=== PATIENT | male | born 1965 | race Caucasian/White ===

== ENCOUNTER 2018-04-08 19:03 | Emergency (ER) | payer MEDICAID ==
[2018-04-08 19:18] VITALS: BP 144/98; PULSE 70; TEMP 98.7; O2SAT 97
[2018-04-08] MEDS ORDERED: Naproxen 550 mg Tab PO STA (20:04)
[2018-04-08] MEDS ORDERED: Naproxen 550 mg Tab PO ONE (20:10)
--- NOTE | 2018-04-08 20:11 | C.PDOC ---
History Of Present Illness 52 year old male presents to the ED for evaluation of pain from his right index and middle finger that has been radiating up his right arm since yesterday. As per son, patient experienced some right shoulder pain last week. 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 Of note, patient sustained a crush injury to his right middle finger around 30+ years ago. Patient denies trauma to the area, neck pain, changes in sensation or weakness. Time Seen by Provider: 04/08/18 19:51 Chief Complaint (Nursing): Finger,Hand,&Wrist History Per: Patient History/Exam Limitations: no limitations Onset/Duration Of Symptoms: Hrs Current Symptoms Are (Timing): Still Present Quality: "Pain" Additional History Per: Patient Past Medical History Reviewed: Historical Data, Nursing Documentation, Vital Signs Vital Signs: Last Vital Signs Temp 98.7 F 04/08/18 19:14 Pulse 70 04/08/18 19:14 Resp 20 04/08/18 20:32 BP 144/98 H 04/08/18 19:14 Pulse Ox 97 04/08/18 22:04 - Medical History PMH: HTN Surgical History: No Surg Hx Family History: States: Unknown Family Hx - Social History Hx Alcohol Use: Yes Hx Substance Use: No - Immunization History Hx Tetanus Toxoid Vaccination: No Hx Influenza Vaccination: No Hx Pneumococcal Vaccination: No Review Of Systems Cardiovascular: Negative for: Chest Pain Respiratory: Negative for: Shortness of Breath Musculoskeletal: Positive for: Shoulder Pain (right), Arm Pain (right), Other ( right index and right middle finger pain ) Neurological: Negative for: Weakness, Numbness Physical Exam - Physical Exam Appears: Non-toxic, No Acute Distress Skin: Normal Color, Warm, Dry Head: Atraumatic, Normacephalic Eye(s): bilateral: Normal Inspection, EOMI Nose: Normal Oral Mucosa: Moist Neck: Normal ROM, No Midline Cervical Tenderness, No Paracervical Tenderness, No Step Off Deformity, Supple Chest: Symmetrical, No Deformity, No Tenderness Cardiovascular: Rhythm Regular Respiratory: Normal Breath Sounds, No Rales, No Rhonchi, No Wheezing Extremity: Normal ROM, No Tenderness, Capillary Refill (less than 2 seconds ), Deformity (chronic, to distal aspect of right 3rd finger ), No Swelling Extremity: Bilateral: Normal Color And Temperature, Normal ROM Pulses: Left Radial: Normal, Right Radial: Normal Neurological/Psych: Oriented x3, Normal Speech, Normal Cognition, Normal Motor ( 5/5), Normal Sensation ED Course And Treatment O2 Sat by Pulse Oximetry: 97 (on RA) Pulse Ox Interpretation: Normal Progress Note: Naproxen PO given. Discussed with pt and son, no signs of infection, trauma. Cap refill < 2 sec, and radial pulse 2+. Patient is instructed on NSAIDS and is advised to follow up with his PMD within 1-2 days for further evaluation and/or return to the ED if symptoms persist or worsen. Disposition - Disposition Referrals: Brant Ram MD [Medical Doctor] - Disposition: HOME/ ROUTINE Disposition Time: 20:04 Condition: STABLE Additional Instructions: Follow up with your doctor in 1-2 days. Return to ER if symptoms persist or worsen. Prescriptions: Gabapentin [Neurontin] 300 mg PO DAILY #12 cap Instructions: Radiculopathy (DC) Forms: [employer] ([place] Islander) - Clinical Impression Clinical Impression: Peripheral neuropathy - PA / CLAIMS MANAGER / Resident Statement MD/DO has reviewed & agrees with the documentation as recorded. - Scribe Statement The provider has reviewed the documentation as recorded by the Scribe (Rafaela Negrete) All medical record entries made by the Scribe were at my direction and personally dictated by me. I have reviewed the chart and agree that the record accurately reflects my personal performance of the history, physical exam, medical decision making, and the department course for this patient. I have also personally directed, reviewed, and agree with the discharge instructions and disposition.
[2018-04-08 20:33] VITALS: RESP 20
== END 2018-04-08 20:32 | disposition home or self-care (01) ==
LOC: C.ER 19:03
DX: G62.9 Polyneuropathy, unspecified (principal); I10 Essential (primary) hypertension

== ENCOUNTER 2018-07-20 10:59 | Emergency (ER) | payer MEDICAID ==
[2018-07-20 11:08] VITALS: TEMP 98
--- NOTE | 2018-07-20 11:50 | C.PDOC ---
History Of Present Illness 52 year old male with a history of rheumatoid arthritis presents to the emergency department with complaints of right lower back pain, radiating down to his right buttock and right leg worsening over the past three days. Patient states that the pain is worse with movement, ambulation. Admits, similar in past. Otherwise, pt denies known direct trauma or injury, fever, chills, abd. pain, N/V, UTI sx, saddle anesthesia, incontinence, [id number] weakness, sensory or vascular deficits to B/L LEs. AMbulate to ED, in pain. Time Seen by Provider: 07/20/18 11:07 Chief Complaint (Nursing): Hip Pain History Per: Patient History/Exam Limitations: no limitations Onset/Duration Of Symptoms: Days (3) Current Symptoms Are (Timing): Worse Past Medical History Reviewed: Historical Data, Nursing Documentation, Vital Signs Vital Signs: Last Vital Signs Temp 98.0 F 07/20/18 11:04 Pulse 92 H 07/20/18 11:04 Resp 16 07/20/18 11:04 BP 128/88 07/20/18 11:04 Pulse Ox 100 07/20/18 11:04 - Medical History PMH: HTN Surgical History: No Surg Hx Family History: States: No Known Family Hx - Social History Hx Alcohol Use: Yes Hx Substance Use: No - Immunization History Hx Tetanus Toxoid Vaccination: No Hx Influenza Vaccination: No Hx Pneumococcal Vaccination: No Review Of Systems Except As Marked, All Systems Reviewed And Found Negative. Constitutional: Negative for: Fever, Chills Gastrointestinal: Negative for: Abdominal Pain Musculoskeletal: Positive for: Back Pain, Leg Pain (right buttock, right leg) Neurological: Negative for: Weakness, Numbness Physical Exam - Physical Exam Appears: Well, Non-toxic, No Acute Distress Skin: Normal Color, Warm, Dry, No Rash Head: Normacephalic Eye(s): bilateral: PERRL Oral Mucosa: Moist Throat: No Drooling Neck: Supple Gastrointestinal/Abdominal: Soft, No Tenderness, No Distention, No Guarding, No Rebound Back: No CVA Tenderness, No Vertebral Tenderness, Paraspinal Tenderness (Right lumbar extend to Right gluteal around sciatica) Extremity: Normal ROM, No Tenderness, No Pedal Edema, No Deformity, No Swelling Pulses: Right Dorsalis Pedis: Normal DTR: Knee (R): 2+, Ankle (R): 2+ Neurological/Psych: Oriented x3, Normal Speech, Normal Motor, Normal Sensation, Normal Reflexes ED Course And Treatment O2 Sat by Pulse Oximetry: 100 Pulse Ox Interpretation: Normal - Other Rad L-spine X-Ray: Interpreted by Me, Viewed By Me Interpretation: (+) mild DJD, no acute fx or sublux Pelvis w/Right hip X-Ray: Interpreted by Me, Viewed By Me Interpretation: (-) acute fx or dislocation Progress Note: Plan: Neurontin 300mg PO. Prednisone 60mg PO. XR Right Hip w/ Pelvis. XR LS-Spine AP/LAT. On re-eval, pt is afebrile, hemodynamicaly stable. AMbulatoyr in ED with stable gait. Abd: benign, (-) guarding, (-) rebound. Back: (-) CVA tenderness. Neuorlogicaly intact. Imagings review- mild DJD, no acute abnormalities. Pt has clinical findings c/w Right lumba radiculopathy. Pt advised. ref. to f/u with PMD in2 -3 days for re-eval. return to ED if any worsening or new changes . Disposition Counseled Patient/Family Regarding: Diagnosis, Need For Followup, Rx Given - Disposition Referrals: Brant Ram MD [Medical Doctor] - Disposition: HOME/ ROUTINE Disposition Time: 12:23 Condition: STABLE Additional Instructions: LIght duty, bedrest for 1-2 weeks Take medication as prescribed Follow up with PMD in 2-3 days for re-evaluation. return to ED if any worsening or new changes. Prescriptions: Gabapentin [Neurontin] 300 mg PO TID #10 cap Methocarbamol [Robaxin] 500 mg PO TID #14 tab Prednisone [Deltasone] 20 mg PO DAILY #3 tablet Instructions: Sciatica, Radiculopathy Forms: [employer] (Persian) - Clinical Impression Clinical Impression: Lumbar radiculopathy - PA / DATABASE DESIGNER / Resident Statement MD/DO has reviewed & agrees with the documentation as recorded. - Scribe Statement The provider has reviewed the documentation as recorded by the Scribe (Phil Santos) All medical record entries made by the Scribe were at my direction and personally dictated by me. I have reviewed the chart and agree that the record accurately reflects my personal performance of the history, physical exam, medical decision making, and the department course for this patient. I have also personally directed, reviewed, and agree with the discharge instructions and disposition.
[2018-07-20 12:49] VITALS: BP 120/93; PULSE 88; RESP 18
--- NOTE | 2018-07-20 15:05 | RAD ---
pelvis and right hip two views HISTORY: Pain. COMPARISON: None available. Findings: Moderate narrowing of the bilateral hip joint spaces with subchondral sclerosis and osteophytosis. No evidence of acute displaced fracture or dislocation. Degenerative changes in the lower lumbar spine Impression: Degenerative changes. If pain persists consider correlation with MRI.
[2018-07-20 17:43] VITALS: O2SAT 100
--- NOTE | 2018-07-20 17:46 | RAD ---
Lumbar spine three views HISTORY: Pain. Comparison: None available. FINDINGS: Mild dextroscoliotic curvature of the lower lumbar spine. Minimal retrolisthesis of L1 on L2, L2 on L3, L3 on L4, and L4 on L5. Mild inferior endplate concavities of the L2, L4, and L5 vertebral bodies. Multilevel anterior osteophytosis. Lower level facet hypertrophy and sclerosis. Multilevel posterior disc osteophyte complexes, most prominent at the L5-S1. Mild superior endplate concavities at the L3 and L4 vertebral bodies. Moderate degenerative changes of the bilateral hips with joint space narrowing and subchondral sclerosis as well as osteophytosis. Impression: Degenerative changes. If pain persists, consider MRI.
== END 2018-07-20 12:50 | disposition home or self-care (01) ==
LOC: C.ER 10:59
DX: M54.16 Radiculopathy, lumbar region (principal)